=== PATIENT | male | born 1980 | race African-American/Black ===

== ENCOUNTER → 2019-12-13 | Outpatient (CLI) | payer BC ==
--- NOTE | 2019-12-13 11:22 | RADIOLOGY REPORT (SQ) ---
EXAM DESCRIPTION: CT SOFT TISSUE NECK WITH IMAGES COMPLETED DATE/TIME: 12/13/2019 11:10 am REASON FOR STUDY: SIALOLITHIASIS (K11.5) K11.5 SIALOLITHIASIS COMPARISON: None. TECHNIQUE: Post IV contrasted scanning from skull base through lung apices with review of bone, soft tissue and lung windows. Reconstructed coronal and sagittal MPR images reviewed. All images stored on PACS. All CT scanners at this facility use dose modulation, iterative reconstruction, and/or weight based d osing when appropriate to reduce radiation dose to as low as reasonably achievable (ALARA). [facility]: Dose Right [facility]: CareDose [facility]: Dose Right [facility]: Teradose 4D [facility]: [employer] CONTRAST TYPE AND DOSE: contrast/concentration: Isovue 350.00 mg/ml; Total Contrast Delivered: 75.0 ml; Total Saline Delivered: 55.0 ml RENAL FUNCTION: None required. The patient is less than 50 years old. RADIATION DOSE: . LIMITATIONS: None. FINDINGS: SKULL BASE: Intact. MAJOR SALIVARY GLANDS: Large calcification within the left submandibular gland measures close to 1.3 cm transverse dimension. Within the gland, there mildly dilated ducts. No duct dilatation in the fl oor of the mouth, however. Remaining salivary glands look normal. LYMPHADENOPATHY: Shotty subcentimeter nodes. No enlarged or focally abnormal nodes detected. MUCOSAL MASSES OR ASYMMETRY: No mucosal masses or asymmetry. LARYNX/CORDS: No abnormal findings. VASCULAR STRUCTURES: The major vessels are patent. LUNG APICES: Clear. BONES: Intact. THYROID: Normal size. No masses. PARANASAL SINUSES: Clear. OTHER: No other significant finding. IMPRESSION: 1. Left submandibular sialolithiasas. Sizable solitary stone noted. 2. Otherwise unremarkable CT neck without contrast. TECHNICAL DOCUMENTATION: JOB ID: [id number] Quality ID # [id number]: Final reports with documentation of one or more dose reduction techniques (e.g., Au tomated exposure control, adjustment of the mA and/or kV according to patient size, use of iterative reconstruction technique) 2010 [employer]- All Rights Reserved Reading location - IP/workstation name: [email or web address]
== END ==
LOC: RAD 10:38
PROVIDERS: ATTEND Otolaryngology
DX: K11.5 Sialolithiasis (principal)
CPT/HCPCS: 70491

== ENCOUNTER 2020-01-05 05:49 | Day surgery (SDC) | payer BC ==
[2019-12-30 13:30] LABS: HEMATOCRIT 43.8 % (37.9-51.0); HEMOGLOBIN 14.5 g/dL (13.5-17.0); MEAN CORPUSCULAR HEMOGLOBIN 29.5 pg (27.0-33.4); MEAN CORPUSCULAR HGB CONC 33.2 g/dL (32.0-36.0); MEAN CORPUSCULAR VOLUME 89 fl (80-97); PLATELET COUNT 199 10^3/uL (150-450); RED BLOOD COUNT 4.93 10^6/uL (4.35-5.55); RED CELL DISTRIBUTION WIDTH 14.7 % (11.5-14.0)
[2019-12-30 13:54] LABS: ANION GAP 7 (5-19); BLOOD UREA NITROGEN 14 mg/dL (7-20); CALCIUM 9.9 mg/dL (8.4-10.2); CARBON DIOXIDE 30 mmol/L (22-30); CHLORIDE 102 mmol/L (98-107); GLUCOSE 105 mg/dL (75-110); POTASSIUM 4.4 mmol/L (3.6-5.0)
[~2020-01-05 05:49] MED LIST: CEFAZOLIN 2 GM/D5W RTU 2 GM/50 ML RTUPB IV ONE; CEFAZOLIN 2 GM/D5W RTU 2 GM/50 ML RTUPB IV PRN
[2020-01-05] MEDS ORDERED: DEXAMETHASONE SOD PHOSPHATE INJ 4 MG/1 ML VIAL ONE (06:53)
[2020-01-05] MEDS ORDERED: MIDAZOLAM 2 MG/2 ML INJ ONE (06:53)
[2020-01-05] MEDS ORDERED: ONDANSETRON HCL INJ/PF 4 MG/2 ML SDV ONE (06:53)
[2020-01-05] MEDS ORDERED: FENTANYL CITRATE INJ/PF 100 MCG/2 ML AMPUL ONE (06:53)
[2020-01-05] MEDS ORDERED: MORPHINE SULFATE 10 MG/ML INJ ONE (06:54)
[2020-01-05] MEDS ORDERED: PROPOFOL INJ 200 MG/20 ML VIAL IV ONE (06:54)
[2020-01-05] MEDS ORDERED: KETOROLAC TROMETHAMINE 60 MG/2 ML SDV ONE (06:56)
[2020-01-05] MEDS ORDERED: LIDOCAINE 2%/EPINEPHRINE INJ 1.7 ML CARTRIDGE ONE (07:06)
[2020-01-05] MEDS ORDERED: OXYMETAZOLINE HCL 0.05% NASAL SPRAY 15 ML BOTTLE ONE (07:06)
[2020-01-05] MEDS ORDERED: PROMETHAZINE HCL INJ 25 MG/1 ML VIAL IV PRN (09:07)
[2020-01-05] MEDS ORDERED: OXYCODONE-ACETAMINOPHEN 5-325 MG TABLET PO PRN ×2 (09:07)
[2020-01-05] MEDS ORDERED: FENTANYL CITRATE INJ/PF 100 MCG/2 ML AMPUL IV PRN ×3 (09:07)
[2020-01-05] MEDS ORDERED: DIPHENHYDRAMINE HCL 50 MG/ML VIAL IV PRN (09:07)
[2020-01-05] MEDS ORDERED: MORPHINE SULFATE 10 MG/ML INJ IV PRN (09:07)
[2020-01-05] MEDS ORDERED: ONDANSETRON HCL INJ/PF 4 MG/2 ML SDV IV PRN ×2 (09:07→10:30)
[2020-01-05] MEDS ORDERED: MEPERIDINE HCL/PF INJ 25 MG/1 ML DISP.SYRIN IV PRN (09:07)
--- NOTE | 2020-01-05 10:12 | Operative Report ---
Operative Report-[facility] Operative Report: Date: 05 January 2020 History: 39-year-old male with a history of chronic sialadenitis and chronic angelina lolithiasis involving the left submandibular gland. CT scan confirmed presence of sialolithiasis. Patient presents today for excision left submandibular gland. Informed sent was obtained from the patient. Preoperative Diagnosis: 1. Chronic sialadenitis, left 2. Chronic sialolithiasis, left Postoperative Diagnosis: Same as above Procedure: 1. Excision left submandibular Gland 2. Use of nerve integrity monitoring Surgeon: Dylan Momin MD, FACS, FCCP Brim Presser: Mitchell Vaca DO Anesthesia: INGRID Description of the procedure: After receiving informed consent from the patient, patient was transferred to the operating room and placed supine on the operating room table. After successful induction and intubation by anesthesia, a shoulder roll was placed extending the neck and the head was turned to the right side exposing the left neck. An incision site was marked approximately two fingerbreadths below the inferior edge of the mandible. Nerve integrity monitor electrodes were placed and the monitor was calibrated and found to be functioning normally. The incision site was infiltrated with 2% lidocaine with 100,000 epinephrine. The patient was then prepped and draped in a sterile fashion. 15 blade was used to make an incision through the subcutaneous tissue and through the platysma. Subplatysmal flaps were elevated superiorly and inferiorly. Dissection was continued until the fascia of the submandibular gland was identified. This was carefully dissected from the submandibular gland. The marginal mandibular branch of the facial nerve was identified and stimulated and found to be functioning normally. Inferior margin of the submandibular gland was identified and dissected free from surrounding tissue. The common tendon of the digastric muscles was identified. Starting from the inferior margin we continued the dissection deep to the gland identifying the hypoglossal nerve which was intact and preserved. Dissection continued superiorly. The anterior and posterior portions of the gland were dissected free from the surrounding tissue. Blood vessels that were encountered were ligated and transected using the LigaSure. Dissection was then continued toward the mylohyoid muscle. The gland was carefully dissected from the superficial portion of the mylohyoid muscle. Retractor was placed underneath the mylohyoid muscle exposing Huntingdon's duct and lingual nerve. The submandibular gland was then carefully dissected towards the lingual nerve. The Huntingdon's duct was ligated and transected using the LigaSure. The gland was then carefully dissec amanda from the lingual nerve preserving the lingual nerve. The parasympathetic fibers going from the gland towards the lingual nerve were ligated and transected, preserving the lingual nerve. The gland was removed and sent to pathology for histopathologic examination. A large salivary gland stone was palpated within the substance of the salivary gland near Huntingdon's duct. The wound was then irrigated with normal saline. No bleeding was noted. A Emely drain was then placed. The wound was then closed in layers. The platysma muscle, subcutaneous tissue and dermis were closed using 4-0 Monocryl. Drain was brought out the inferior portion of the wound. A rescue suture of 4-0 chromic was placed at this site. Dermabond Mastisol and Steri-Strips were applied. A dressing was also applied. The patient was given back to anesthesia who successfully extubated the patient without any complications. Estimated blood loss: 15 mL Fluids: 600 mL Patient was then transferred to the post anesthesia care unit in stable condition with spontaneous respirations. No complications
[2020-01-05] MEDS ORDERED: HYDROCODONE/ACETAMINOPHEN 5-325 MG TABLET PO PRN (10:29)
[2020-01-05 11:56] VITALS: BP 118/73
[2020-01-05] MEDS ORDERED: SUCCINYLCHOLINE CHLORIDE INJ 200 MG/10 ML VIAL ONE (13:41)
[2020-01-05] MEDS ORDERED: ROCURONIUM BROMIDE INJ 50 MG/5 ML VIAL IV ONE (13:41)
== END 2020-01-05 11:40 | disposition home or self-care (01) ==
LOC: OROUT 05:49
PROVIDERS: ATTEND Otolaryngology
DX: K11.23 Chronic sialoadenitis (principal); K11.5 Sialolithiasis
CPT/HCPCS: 36415; 85027; 87635; 80048; 88305 ×2; 42440; J2250; J3490 ×3; J1100; J1885; J3010; J0330; J2405; J2704; J0690; C9803; 100; J2270